=== PATIENT | female | born 1990 | race Caucasian/White ===

== ENCOUNTER 2021-06-10 18:32 | Inpatient (IN) | payer OTHER ==
[2021-06-10] MEDS ORDERED: Ondansetron 4 MG/2 ML SDV IVPUSH PRN (18:58)
[2021-06-10] MEDS ORDERED: Sodium Chloride 0.9% 10 ML Syringe FLUSH PRN (18:58)
[2021-06-10] MEDS ORDERED: Calcium Carbonate 500 MG Tab.Chew PO PRN (18:58)
[2021-06-10] MEDS ORDERED: Lidocaine 1% 50 ML MDV INJECT ONE (18:58)
[2021-06-10] MEDS ORDERED: Acetaminophen 325 MG Tab PO PRN (18:58)
[2021-06-10] MEDS ORDERED: Nalbuphine 10 MG/1 ML Vial IVPUSH PRN (18:58)
[2021-06-10] MEDS ORDERED: Oxytocin/Lactated Ringers 10 UNIT/1,000 ML BAG IV SCH ×2 (19:00)
[2021-06-10] MEDS: Lactated Ringers 1,000 ML IV SCH ×3 (20:44→22:28)
[2021-06-10] MEDS ORDERED: Bupivacaine/fentaNYL/NS 100 ML Bag EPIDUR PRN (21:07)
[2021-06-10] MEDS ORDERED: fentaNYL 100 MCG/2 ML SDV EPIDUR PRN (21:07)
[2021-06-10] MEDS ORDERED: diphenhydrAMINE 50 MG/ML SDV IVPUSH PRN (21:07)
[2021-06-10] MEDS ORDERED: ePHEDrine 50 MG/ML SDV IVPUSH PRN (21:07)
--- NOTE | 2021-06-10 21:17 | PCM.PREANE ---
Preanesthetic Assessment - Procedure Proposed Procedure: Labor epidural - Anesthesia/Transfusion/Family Hx Anesthesia History: Prior Anesthesia Reaction Type of Anesthesia Reaction: Excessive Nausea/Vomiting Family History of Anesthesia Reaction: No Transfusion History: No Prior Transfusion(s) Intubation History: Unknown - Review of Systems General: No Symptoms Pulmonary: No Symptoms Cardiovascular: No Symptoms Gastrointestinal: Abdominal Pain (uterine contractions) Neurological: No Symptoms Other: Reports: None - Physical Assessment NPO Status Date: 06/10/21 NPO Status Time: 17:00 Vital Signs: Last Vital Signs Temp 98.7 F 06/10/21 18:51 Pulse 106 H 06/10/21 18:51 Resp 16 06/10/21 18:51 BP 133/82 06/10/21 18:51 Pulse Ox 98 06/10/21 18:51 Height: 1.63 m Weight: 89.358 kg ASA Class: 2 Mental Status: Alert & Oriented x3 Airway Class: Mallampati = 2 Dentition: Reports: Caries Thyro-Mental Finger Breadths: 3 Mouth Opening Finger Breadths: 3 ROM/Head Extension: Full Lungs: Clear to Auscultation, Normal Respiratory Effort Cardiovascular: Regular Rate, Regular Rhythm, No Murmurs - Lab Values: Laboratory Last Values WBC 9.38 K/mm3 (3.98-10.04) 06/10/21 19:15 RBC 4.18 M/mm3 (3.98-5.22) 06/10/21 19:15 Hgb 11.8 gm/dl (11.2-15.7) 06/10/21 19:15 Hct 36.7 % (34.1-44.9) 06/10/21 19:15 MCV 87.8 fl (79.4-94.8) 06/10/21 19:15 MCH 28.2 pg (25.6-32.2) 06/10/21 19:15 MCHC 32.2 g/dl (32.2-35.5) 06/10/21 19:15 RDW Std Deviation 43.7 fL (36.4-46.3) 06/10/21 19:15 Plt Count 232 K/mm3 (182-369) 06/10/21 19:15 MPV 9.7 fl (9.4-12.3) 06/10/21 19:15 Neut % (Auto) 58.8 % (34.0-71.1) 06/10/21 19:15 Lymph % (Auto) 25.2 % (19.3-51.7) 06/10/21 19:15 [place] % (Auto) 14.2 % (4.7-12.5) H 06/10/21 19:15 Eos % (Auto) 1.1 (0.7-5.8) 06/10/21 19:15 Baso % (Auto) 0.1 % (0.1-1.2) 06/10/21 19:15 Neut # (Auto) 5.52 K/mm3 (1.56-6.13) 06/10/21 19:15 Lymph # (Auto) 2.36 K/mm3 (1.18-3.74) 06/10/21 19:15 [place] # (Auto) 1.33 K/mm3 (0.24-0.36) H 06/10/21 19:15 Eos # (Auto) 0.10 K/mm3 (0.04-0.36) 06/10/21 19:15 Baso # (Auto) 0.01 K/mm3 (0.01-0.08) 06/10/21 19:15 SARS-CoV-2 RNA (HARIKA) Negative (NEGATIVE) 06/10/21 18:58 - Allergies Allergies/Adverse Reactions: Allergies Allergy/AdvReac Type Severity Reaction Status Date / Time No Known Allergies Allergy Verified 05/30/16 11:14 - Blood Blood Available: No Product(s) Available: None - Acknowledgements Anesthesia Type Planned: Epidural Pt an Appropriate Candidate for the Planned Anesthesia: Yes Alternatives and Risks of Anesthesia Discussed w Pt/Guardian: Yes Pt/Guardian Understands and Agrees with Anesthesia Plan: Yes PreAnesthesia Questionnaire HEENT History: Reports: Impaired Vision Other HEENT History: Wears glasses Cardiovascular History: Reports: None Respiratory History: Reports: None Gastrointestinal History: Reports: GERD Genitourinary History: Reports: None 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: Musculoskeletal History: Reports: Arthritis Other Musculoskeletal History: undiagnosed per patient Neurological History: Reports: Cerebral Palsy Psychiatric History: Reports: None Endocrine/Metabolic History: Reports: None Hematologic History: Reports: None Immunologic History: Reports: None Oncologic (Cancer) History: Reports: None Dermatologic History: Reports: None - Infectious Disease History Infectious Disease History: Reports: None - Past Surgical History Female Surgical History: Reports: D&C Musculoskeletal Surgical History: Reports: Other (See Below) Other Musculoskeletal Surgeries/Procedures:: Ankle surgery; hip surgery - SUBSTANCE USE Tobacco Use Status *Q: Never Tobacco User Tobacco Use Within Last Twelve Months: No Second Hand Smoke Exposure: No Days Per Week of Alcohol Use: 0 Number of Drinks Per Day: 0 Total Drinks Per Week: 0 Recreational Drug Use History: No - HOME MEDS Home Medications: Home Meds Ibuprofen [Motrin] 600 mg PO Q4H PRN #30 tablet 05/30/16 [Rx] - CURRENT (IN HOUSE) MEDS Current Meds: Current Medications Acetaminophen (Acetaminophen 325 Mg Tab) 650 mg PO Q4H PRN PRN Reason: Pain (Mild 1-3) and fever Calcium Carbonate/Glycine (Calcium Carbonate 500 Mg Tab.Chew) 1,000 mg PO Q2H PRN PRN Reason: Indigestion Diphenhydramine HCl (Diphenhydramine 50 Mg/Ml Sdv) 25 mg IVPUSH Q6H PRN PRN Reason: pruritis Ephedrine Sulfate (Ephedrine 50 Mg/Ml Sdv) 5 mg IVPUSH ASDIRECTED PRN PRN Reason: Hypotension Fentanyl (Fentanyl 100 Mcg/2 Ml Sdv) 100 mcg EPIDUR Q3H PRN PRN Reason: Pain Fentanyl/Bupivacaine HCl (Bupivacaine/Fentanyl/Ns 100 Ml Bag) 100 ml EPIDUR ASDIRECTED PRN PRN Reason: Pain Lactated Ringer's (Ringers, Lactated) 1,000 mls @ 100 mls/hr IV ASDIRECTED JOANN Last Admin: 06/10/21 20:44 Dose: 100 mls/hr Documented by: Oxytocin/Lactated Ringer's (Pitocin In Lr 10 Units/1,000 Ml) 10 unit in 1,000 mls @ 12 mls/hr IV TITRATE JOANN; Protocol Oxytocin/Lactated Ringer's (Pitocin In Lr 10 Units/1,000 Ml) 10 unit in 1,000 mls @ 100 mls/hr IV .CONTINUOUS JOANN; Protocol Nalbuphine HCl (Nalbuphine 10 Mg/1 Ml Vial) 10 mg IVPUSH Q2H PRN PRN Reason: Pain Ondansetron HCl (Ondansetron 4 Mg/2 Ml Sdv) 4 mg IVPUSH Q4H PRN PRN Reason: Nausea/Vomiting Sodium Chloride (Sodium Chloride 0.9% 10 Ml Syringe) 10 ml FLUSH ASDIRECTED PRN PRN Reason: Keep Vein Open Discontinued Medications Lidocaine HCl (Lidocaine 1% 50 Ml Mdv) 50 ml INJECT ONETIME ONE Stop: 06/10/21 18:59
[2021-06-11] MEDS: Lactated Ringers 1,000 ML IV SCH (00:57)
--- NOTE | 2021-06-11 02:05 | PCM.LDHP ---
L&D History of Present Illness - General Date of Service: 06/11/21 Admit Problem/Dx: Patient Status Order with Admit Dx/Problem 06/10/21 18:38 Patient Status [ADT] Routine 06/10/21 18:58 Patient Status [ADT] Routine Admission Diagnosis/Problem Admission Diagnosis/Problem Source of Information: Patient - History of Present Illness Introduction:: 31 year old at 38w2 here with SROM. Clear fluid started leaking at 1430. PNC with Dr Estevez complicated by 1)Cerebral Palsy - pelvis proven to 5#12oz 2)Rh neg s/p 28 week prhogam 3)MMR equiv Pain Score: 2 - Related Data Allergies/Adverse Reactions: Allergies Allergy/AdvReac Type Severity Reaction Status Date / Time latex Allergy Itching Verified 06/10/21 23:02 Home Medications: Home Meds Ibuprofen [Motrin] 600 mg PO Q4H PRN #30 tablet 05/30/16 [Rx] Past Medical History - Past Health History Medical/Surgical History: Denies Medical/Surgical History HEENT History: Reports: Impaired Vision Other HEENT History: Wears glasses Cardiovascular History: Reports: None Other Cardiovascular History: records show factor V leiden mutation, pt denies this diagnosis Respiratory History: Reports: None Gastrointestinal History: Reports: GERD Genitourinary History: Reports: None 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: Musculoskeletal History: Reports: Arthritis Other Musculoskeletal History: undiagnosed per patient Neurological History: Reports: Cerebral Palsy Psychiatric History: Reports: None Endocrine/Metabolic History: Reports: None Hematologic History: Reports: None Immunologic History: Reports: None Oncologic (Cancer) History: Reports: None Dermatologic History: Reports: None - Infectious Disease History Infectious Disease History: Reports: None - Past Surgical History Female Surgical History: Reports: D&C Musculoskeletal Surgical History: Reports: Other (See Below) Other Musculoskeletal Surgeries/Procedures:: Ankle surgery; hip surgery Social & Family History - Family History Family Medical History: No Pertinent Family History Endocrine/Metabolic: Reports: Diabetes, type II Oncologic: Reports: Breast, Pancreatic, Uterine - Tobacco Use Tobacco Use Status *Q: Never Tobacco User Second Hand Smoke Exposure: No - Alcohol Use Days Per Week of Alcohol Use: 0 Number of Drinks Per Day: 0 Total Drinks Per Week: 0 - Recreational Drug Use Recreational Drug Use: No - Living Situation & Occupation Living situation: Reports: , with Spouse, with Family Occupation: Employed H&P Review of Systems - Review of Systems: Review Of Systems: See Below General: Reports: No Symptoms HEENT: Reports: No Symptoms Pulmonary: Reports: No Symptoms Cardiovascular: Reports: No Symptoms Gastrointestinal: Reports: No Symptoms Genitourinary: Reports: No Symptoms Musculoskeletal: Reports: No Symptoms Skin: Reports: No Symptoms Psychiatric: Reports: No Symptoms Neurological: Reports: No Symptoms Hematologic/Lymphatic: Reports: No Symptoms Immunologic: Reports: No Symptoms L&D Exam - Exam Exam: See Below - Vital Signs Vital Signs: Last Vital Signs Temp 37.1 C 06/10/21 18:51 Pulse 106 H 06/10/21 18:51 Resp 16 06/10/21 18:51 BP 133/82 06/10/21 18:51 Pulse Ox 98 06/10/21 18:51 Weight: 89.358 kg - OB Specific Contraction Intensity: Moderate to Strong Movement: Active Heart Tones: Present Heart Rate (FHR) Variability: Moderate (6-25 bpm) Presentation: Vertex - Marquez Score Marquez Score Cervix Position: Anterior Marquez Score Effacement: 31-50% Marquez Score Dilation: 3-4 cm Marquez Score Infant's Station: -2 - Exam General: Alert, Oriented HEENT: PERRLA, Conjunctiva Clear, EACs Clear, EOMI, Hearing Intact, Mucosa Moist & [place], Nares Patent, Normal Nasal Septum, Posterior Pharynx Clear, TMs Clear Neck: Supple, Trachea Midline Lungs: Clear to Auscultation, Normal Respiratory Effort Cardiovascular: Regular Rate, Regular Rhythm GI/Abdominal Exam: Normal Bowel Sounds, Soft, Non-Tender, No Organomegaly, No Distention, No Abnormal Bruit, No Mass, Pelvis Stable Back Exam: Normal Inspection, Full Range of Motion Extremities: Normal Inspection, Normal Range of Motion, Non-Tender, No Pedal Edema, Normal Capillary Refill Skin: Warm, Dry, Intact Neurological: Cranial Nerves Intact, Reflexes Equal Bilateral Psychiatric: Alert, Normal Affect, Normal Mood - Patient Data Lab Results Last 24 hrs: Laboratory Results - last 24 hr 06/10/21 06/10/21 06/10/21 Range/Units 18:58 19:15 19:15 WBC 9.38 (3.98-10.04) K/mm3 RBC 4.18 (3.98-5.22) M/mm3 Hgb 11.8 (11.2-15.7) gm/dl Hct 36.7 (34.1-44.9) % MCV 87.8 (79.4-94.8) fl MCH 28.2 (25.6-32.2) pg MCHC 32.2 (32.2-35.5) g/dl RDW Std Deviation 43.7 (36.4-46.3) fL Plt Count 232 (182-369) K/mm3 MPV 9.7 (9.4-12.3) fl Neut % (Auto) 58.8 (34.0-71.1) % Lymph % (Auto) 25.2 (19.3-51.7) % [place] % (Auto) 14.2 H (4.7-12.5) % Eos % (Auto) 1.1 (0.7-5.8) Baso % (Auto) 0.1 (0.1-1.2) % Neut # (Auto) 5.52 (1.56-6.13) K/mm3 Lymph # (Auto) 2.36 (1.18-3.74) K/mm3 [place] # (Auto) 1.33 H (0.24-0.36) K/mm3 Eos # (Auto) 0.10 (0.04-0.36) K/mm3 Baso # (Auto) 0.01 (0.01-0.08) K/mm3 RPR Non-reactive (NONREACTIVE) SARS-CoV-2 RNA (HARIKA) Negative (NEGATIVE) Result Diagrams: 06/10/21 19:15 Problem List Initiated/Reviewed/Updated: Yes Orders Last 24hrs: Active Orders 24 hr Category Date Time Status Patient Status [ADT] Routine ADT 06/10/21 18:58 Active Activity as Tolerated [RC] PFP Care 06/10/21 18:58 Active Communication Order [RC] ASDIRECTED Care 06/10/21 18:58 Active Heart Tones [RC] ASDIRECTED Care 06/10/21 18:59 Active Non Stress Test [RC] PER UNIT ROUTINE Care 06/10/21 18:38 Active Notify Provider [RC] ASDIRECTED Care 06/10/21 21:07 Active Notify Provider [RC] PFP Care 06/10/21 18:58 Active Notify Provider [RC] PRN Care 06/10/21 18:58 Active Peripheral IV Care [RC] . DIRECTED Care 06/10/21 18:59 Active Pump Management, Intrathecal [RC] ASDIRECTED Care 06/10/21 18:59 Active Urinary Catheter Assessment [RC] ASDIRECTED Care 06/10/21 18:58 Active Vaginal Exam [RC] PRN Care 06/10/21 18:39 Active Vital Signs [RC] PER UNIT ROUTINE Care 06/10/21 18:38 Active Vital Signs [RC] PER UNIT ROUTINE Care 06/10/21 18:58 Active Regular Diet [DIET] Diet 06/10/21 Breakfast Active AMNISURE RUPTURE MEMBRAN [BF] Stat Lab 06/10/21 18:38 Ordered HEP C VIRUS AB [REF] Routine Lab 06/10/21 19:15 Received Acetaminophen [TylenoL] Med 06/10/21 18:58 Active 650 mg PO Q4H PRN Bupivacaine/fentaNYL/NS [fentaNYL/Bupivacaine/NS 2 MCG- Med 06/10/21 21:07 Active 0.125% 100 ML] 100 ml EPIDUR ASDIRECTED PRN Calcium Carbonate [Tums] Med 06/10/21 18:58 Active 1,000 mg PO Q2H PRN Lactated Ringers [Ringers, Lactated] 1,000 ml Med 06/10/21 19:00 Active IV ASDIRECTED Nalbuphine [Nubain] Med 06/10/21 18:58 Active 10 mg IVPUSH Q2H PRN Ondansetron [Zofran] Med 06/10/21 18:58 Active 4 mg IVPUSH Q4H PRN Oxytocin/Lactated Ringers [Pitocin in LR 10 Units/1,000 Med 06/10/21 19:00 Active ML] 10 unit in 1,000 ml IV .CONTINUOUS Oxytocin/Lactated Ringers [Pitocin in LR 10 Units/1,000 Med 06/10/21 19:00 Active ML] 10 unit in 1,000 ml IV TITRATE Sodium Chloride 0.9% [Saline Flush] Med 06/10/21 18:58 Active 10 ml FLUSH ASDIRECTED PRN diphenhydrAMINE [Benadryl] Med 06/10/21 21:07 Active 25 mg IVPUSH Q6H PRN ePHEDrine [ePHEDrine sulfate] Med 06/10/21 21:07 Active 5 mg IVPUSH ASDIRECTED PRN fentaNYL [Sublimaze] Med 06/10/21 21:07 Active 100 mcg EPIDUR Q3H PRN Electronic Heart Tones Ext w TOCO [WOMSER] Oth 06/10/21 18:58 Ordered Routine Electronic Heart Tones Internal [WOMSER] Per Unit Oth 06/10/21 18:58 Ordered Routine Peripheral IV Insertion Adult [OM.PC] Routine Oth 06/10/21 18:58 Ordered Resuscitation Status Routine Resus Stat 06/10/21 18:38 Ordered Medication Orders Acetaminophen (Acetaminophen 325 Mg Tab) 650 mg PO Q4H PRN PRN Reason: Pain (Mild 1-3) and fever Calcium Carbonate/Glycine (Calcium Carbonate 500 Mg Tab.Chew) 1,000 mg PO Q2H PRN PRN Reason: Indigestion Diphenhydramine HCl (Diphenhydramine 50 Mg/Ml Sdv) 25 mg IVPUSH Q6H PRN PRN Reason: pruritis Ephedrine Sulfate (Ephedrine 50 Mg/Ml Sdv) 5 mg IVPUSH ASDIRECTED PRN PRN Reason: Hypotension Fentanyl (Fentanyl 100 Mcg/2 Ml Sdv) 100 mcg EPIDUR Q3H PRN PRN Reason: Pain Last Admin: 06/10/21 21:31 Dose: 100 mcg Documented by: EVIE Fentanyl/Bupivacaine HCl (Bupivacaine/Fentanyl/Ns 100 Ml Bag) 100 ml EPIDUR ASDIRECTED PRN PRN Reason: Pain Last Admin: 06/10/21 21:32 Dose: 100 ml Documented by: EVIE Lactated Ringer's (Ringers, Lactated) 1,000 mls @ 100 mls/hr IV ASDIRECTED JOANN Last Admin: 06/11/21 00:57 Dose: 100 mls/hr Documented by: Infusion: 06/11/21 00:57 Dose: 100 mls/hr Documented by: Admin: 06/10/21 22:28 Dose: 100 mls/hr Documented by: Infusion: 06/10/21 22:28 Dose: 100 mls/hr Documented by: Admin: 06/10/21 21:33 Dose: 100 mls/hr Documented by: Infusion: 06/10/21 21:33 Dose: 100 mls/hr Documented by: Admin: 06/10/21 20:44 Dose: 100 mls/hr Documented by: EVIE Oxytocin/Lactated Ringer's (Pitocin In Lr 10 Units/1,000 Ml) 10 unit in 1,000 mls @ 12 mls/hr IV TITRATE JOANN; Protocol Last Titration: 06/11/21 01:06 Dose: 0 munits/min, 0 mls/hr Documented by: Titration: 06/11/21 00:59 Dose: 2 munits/min, 12 mls/hr Documented by: Titration: 06/11/21 00:15 Dose: 5 munits/min, 30 mls/hr Documented by: Titration: 06/10/21 23:15 Dose: 4 munits/min, 24 mls/hr Documented by: Admin: 06/10/21 22:29 Dose: 2 munits/min, 12 mls/hr Documented by: EVIE Oxytocin/Lactated Ringer's (Pitocin In Lr 10 Units/1,000 Ml) 10 unit in 1,000 mls @ 100 mls/hr IV .CONTINUOUS JOANN; Protocol Nalbuphine HCl (Nalbuphine 10 Mg/1 Ml Vial) 10 mg IVPUSH Q2H PRN PRN Reason: Pain Ondansetron HCl (Ondansetron 4 Mg/2 Ml Sdv) 4 mg IVPUSH Q4H PRN PRN Reason: Nausea/Vomiting Sodium Chloride (Sodium Chloride 0.9% 10 Ml Syringe) 10 ml FLUSH ASDIRECTED PRN PRN Reason: Keep Vein Open Assessment/Plan Comment:: Term SROM - minimal contractions. 1) admission labs including COVID test, CBC, type and screen and RPR 2)pitocin augmentation 3)routine care, anticipate
--- NOTE | 2021-06-11 02:08 | PCM.SN.2 ---
- Free Text/Narrative Note: Stage 1 - Patient presented with SROM. Pitocin augmentation. Epidural anesthesia. Progressed to complete with overall reassuring heart tones. Stage II - of viable male, weight 3060g, 8/9 apgars at 0138. Head delivered in controlled manner over intact perineum. Body and shoulders atraumatically. To maternal abdomen. Positive cry. Cord clamped and cut by father of baby. Cord blood collected. 3vc. Stage III - Cord and lower portion of placenta delivered not intact. Manual extraction of remainder of placenta. Exploration of uterus revealed clot and no further placenta. EBL 300.
[2021-06-11] MEDS ORDERED: Misoprostol 200 MCG Tab ONE (02:13)
[2021-06-11] MEDS ORDERED: Misoprostol 200 MCG Tab PO ONE (02:21)
[2021-06-11] MEDS ORDERED: Acetaminophen 325 MG Tab PO PRN (02:21)
[2021-06-11] MEDS ORDERED: ceFAZolin 1 GM in Premix Bag 1 BAG IV ONE (02:21)
[2021-06-11] MEDS ORDERED: Witch Hazel Medicated Pads 40/Jar TOP PRN (02:21)
[2021-06-11] MEDS ORDERED: Benzocaine/Menthol 20%-0.5% Spray 56 GM Canister TOP PRN (02:21)
[2021-06-11] MEDS ORDERED: Bupivacaine 0.25% 10 ML SDV ONE (03:00)
[2021-06-11] MEDS: Ibuprofen 600 MG Tab PO PRN ×2 (04:45→16:58)
--- NOTE | 2021-06-11 07:38 | PCM48HPAN ---
Post Anesthesia Note - EVALUATION WITHIN 48HRS OF ANESTHETIC Vital Signs in Normal Range: Yes Patient Participated in Evaluation: Yes Respiratory Function Stable: Yes Airway Patent: Yes Cardiovascular Function Stable: Yes Hydration Status Stable: Yes Pain Control Satisfactory: Yes Nausea and Vomiting Control Satisfactory: Yes Mental Status Recovered: Yes Vital Signs: Last Vital Signs Temp 37.1 C 06/10/21 18:51 Pulse 106 H 06/10/21 18:51 Resp 16 06/10/21 18:51 BP 133/82 06/10/21 18:51 Pulse Ox 98 06/10/21 18:51 - COMMENTS/OBSERVATIONS Free Text/Narrative:: no anesthesia complications noted
--- NOTE | 2021-06-12 05:48 | PCM.DCSUM1 ---
Discharge Summary - Hospital Course Free Text/Narrative:: Stage 1 -Ira is a 31-year-old 3 now para 3-0-0-3 white female who was admitted on 06/10/2021 at 38-2/7 weeks gestational age with SROM. Amniotic fluid was clear. Patient underwent Pitocin augmentation. Epidural anesthesia. Progressed to complete with overall reassuring heart tones. Stage II - of viable male, weight 3060g, 8/9 apgars at 0138. Head delivered in controlled manner over intact perineum. Body and shoulders atraumatically. To maternal abdomen. Positive cry. Cord clamped and cut by father of baby. Cord blood collected. 3vc. Stage III - Cord and lower portion of placenta delivered not intact. Manual extraction of remainder of placenta. Exploration of uterus revealed clot and no further placenta. EBL 300. she is nursing well, has minimal lochia, is ambulating well and is voiding without concerns. Vital signs have been stable. She is afebrile. She is desiring discharge home. Condition: Good Diagnosis: Stroke: No - Discharge Data Discharge Date: 06/12/21 Discharge Disposition: Home, Self-Care 01 Condition: Good - Referral to Home Health Primary Care Physician: Jerrod Estevez MD - Patient Instructions Diet: Usual Diet as Tolerated, Regular Diet as Tolerated (Nursing diet with increased calories and calcium as recommended) - Discharge Plan Home Medications: Home Meds Ibuprofen [Motrin] 600 mg PO Q4H PRN #30 tablet 05/30/16 [Rx] Acetaminophen [Tylenol] 650 mg PO Q4H PRN tablet 06/12/21 [Rx] Referrals: Jerrod Estevez MD [Primary Care Provider] - (Return to [facility] weeks.) - Discharge Summary/Plan Comment DC Time >30 min.: No Total # of Minutes for Discharge Time: 10 Discharge Summary/Plan Comment: Discharge instructions: 1. Discharge home 2. Diet, activity and follow-up discussed with patient. Recommend nursing diet with increased calories and calcium. 3. Precautions given concern increased pain, bleeding, temperature, signs/symptoms of DVT/PE. 4. Medications per home medication was printed, discussed with and given to the patient. 5. Return to clinic-Dr. Estevez[facility] in 2 weeks. Diagnosis: Term -delivered Condition: Good - Patient Data Vitals - Most Recent: Last Vital Signs Temp 36.4 C 06/12/21 04:42 Pulse 67 06/12/21 04:42 Resp 16 06/12/21 04:42 BP 108/69 06/12/21 04:42 Pulse Ox 99 06/12/21 04:42 Weight - Most Recent: 89.358 kg I&O - Last 24 hours: Intake & Output 06/11/21 06/11/21 06/12/21 14:59 22:59 06:59 Intake Total 5027 30 Output Total 1024 Balance 4003 30 Lab Results - Last 24 hrs: Laboratory Results - last 24 hr 06/11/21 06/11/21 Range/Units 06:21 13:58 WBC 10.01 (3.98-10.04) K/mm3 RBC 3.55 L (3.98-5.22) M/mm3 Hgb 10.0 L D (11.2-15.7) gm/dl Hct 31.3 L (34.1-44.9) % MCV 88.2 (79.4-94.8) fl MCH 28.2 (25.6-32.2) pg MCHC 31.9 L (32.2-35.5) g/dl RDW Std Deviation 43.1 (36.4-46.3) fL Plt Count 201 (182-369) K/mm3 MPV 9.6 (9.4-12.3) fl Neut % (Auto) 67.5 (34.0-71.1) % Lymph % (Auto) 20.5 (19.3-51.7) % [place] % (Auto) 10.8 (4.7-12.5) % Eos % (Auto) 0.6 L (0.7-5.8) Baso % (Auto) 0.1 (0.1-1.2) % Neut # (Auto) 6.76 H (1.56-6.13) K/mm3 Lymph # (Auto) 2.05 (1.18-3.74) K/mm3 [place] # (Auto) 1.08 H (0.24-0.36) K/mm3 Eos # (Auto) 0.06 (0.04-0.36) K/mm3 Baso # (Auto) 0.01 (0.01-0.08) K/mm3 Blood Type O NEGATIVE Gel Antibody Screen Positive Screen 1 ros/5 flds - neg RhIG Candidate? Yes Rhogam Indicated Yes, baby rh pos H Med Orders - Current: Current Medications Acetaminophen (Acetaminophen 325 Mg Tab) 650 mg PO Q4H PRN PRN Reason: mild pain or fever Benzocaine/Menthol (Benzocaine/Menthol 20%-0.5% Mcdavid 56 Gm Canister) 0 gm TOP ASDIRECTED PRN PRN Reason: Perineal Comfort Measure Ibuprofen (Ibuprofen 600 Mg Tab) 600 mg PO Q6H PRN PRN Reason: Mild pain or fever Last Admin: 06/11/21 16:58 Dose: 600 mg Documented by: Ray Padilla (Ray Padilla Medicated Pads 40/Jar) 1 pad TOP ASDIRECTED PRN PRN Reason: Perineal Comfort Measure Last Admin: 06/11/21 04:46 Dose: 1 canister Documented by: Discontinued Medications Acetaminophen (Acetaminophen 325 Mg Tab) 650 mg PO Q4H PRN PRN Reason: Pain (Mild 1-3) and fever Bupivacaine HCl (Bupivacaine 0.25% 10 Ml Sdv) 10 ml .ROUTE .STK-MED ONE Stop: 06/11/21 03:01 Calcium Carbonate/Glycine (Calcium Carbonate 500 Mg Tab.Chew) 1,000 mg PO Q2H PRN PRN Reason: Indigestion Diphenhydramine HCl (Diphenhydramine 50 Mg/Ml Sdv) 25 mg IVPUSH Q6H PRN PRN Reason: pruritis Ephedrine Sulfate (Ephedrine 50 Mg/Ml Sdv) 5 mg IVPUSH ASDIRECTED PRN PRN Reason: Hypotension Fentanyl (Fentanyl 100 Mcg/2 Ml Sdv) 100 mcg EPIDUR Q3H PRN PRN Reason: Pain Last Admin: 06/10/21 21:31 Dose: 100 mcg Documented by: Fentanyl/Bupivacaine HCl (Bupivacaine/Fentanyl/Ns 100 Ml Bag) 100 ml EPIDUR ASDIRECTED PRN PRN Reason: Pain Last Admin: 06/10/21 21:32 Dose: 100 ml Documented by: Lactated Ringer's (Ringers, Lactated) 1,000 mls @ 100 mls/hr IV ASDIRECTED JOANN Last Admin: 06/11/21 00:57 Dose: 100 mls/hr Documented by: Oxytocin/Lactated Ringer's (Pitocin In Lr 10 Units/1,000 Ml) 10 unit in 1,000 mls @ 12 mls/hr IV TITRATE JOANN; Protocol Last Titration: 06/11/21 01:06 Dose: 0 munits/min, 0 mls/hr Documented by: Oxytocin/Lactated Ringer's (Pitocin In Lr 10 Units/1,000 Ml) 10 unit in 1,000 mls @ 100 mls/hr IV .CONTINUOUS JOANN; Protocol Cefazolin Sodium/Dextrose 1 gm (/ Premix) 50 mls @ 100 mls/hr IV ONETIME ONE Stop: 06/11/21 02:50 Last Admin: 06/11/21 05:17 Dose: Not Given Documented by: Cefazolin Sodium/Dextrose (Ancef 2 Gm/50 Ml) 25 mls @ 50 mls/hr IV ONETIME ONE Stop: 06/11/21 04:14 Last Admin: 06/11/21 04:44 Dose: 50 mls/hr Documented by: Lidocaine HCl (Lidocaine 1% 50 Ml Mdv) 50 ml INJECT ONETIME ONE Stop: 06/10/21 18:59 Last Admin: 06/11/21 05:18 Dose: Not Given Documented by: Misoprostol (Misoprostol 200 Mcg Tab) Confirm Administered Dose 600 mcg .ROUTE .ST-MED ONE Stop: 06/11/21 02:14 Last Admin: 06/11/21 05:17 Dose: Not Given Documented by: Misoprostol (Misoprostol 200 Mcg Tab) 600 mcg PO ONETIME ONE Stop: 06/11/21 02:22 Last Admin: 06/11/21 02:15 Dose: 600 mcg Documented by: Nalbuphine HCl (Nalbuphine 10 Mg/1 Ml Vial) 10 mg IVPUSH Q2H PRN PRN Reason: Pain Ondansetron HCl (Ondansetron 4 Mg/2 Ml Sdv) 4 mg IVPUSH Q4H PRN PRN Reason: Nausea/Vomiting Sodium Chloride (Sodium Chloride 0.9% 10 Ml Syringe) 10 ml FLUSH ASDIRECTED PRN PRN Reason: Keep Vein Open
[2021-06-12 09:12] VITALS: BP 123/83; PULSE 83
== END 2021-06-12 09:06 | disposition home or self-care (01) | DRG 806 ==
LOC: JD.OBCHECK 18:32 → JD.OB 18:58 → OBSVTOIN 06-11 01:38 → JD.OB 06-11 01:39
PROVIDERS: ADMIT Obstetrics & Gynecology; ATTEND Obstetrics & Gynecology
PROC: 10E0XZZ Delivery of Products of Conception, External Approach (ICD-10-PCS; principal; 2021-06-11)
PROC: 3E0334Z Introduction of Serum, Toxoid and Vaccine into Peripheral Vein, Percutaneous Approach (ICD-10-PCS; principal; 2021-06-11)
PROC: 3E0R3BZ Introduction of Anesthetic Agent into Spinal Canal, Percutaneous Approach (ICD-10-PCS; principal; 2021-06-11)
DX: O26.893 Other specified pregnancy related conditions, third trimester (principal); O99.354 Diseases of the nervous system complicating childbirth; Z37.0 Single live birth; Z3A.38 38 weeks gestation of pregnancy; G80.9 Cerebral palsy, unspecified; Z20.822 Contact with and (suspected) exposure to COVID-19; Z67.41 Type O blood, Rh negative
CPT/HCPCS: 01967; 36415; 51702; 59025; 59200; 85025; 85461; 86592; 86803; 86850; 86870; 86900; 86901; A9270-GY; J0690; J2590; J2790; J3010; J3490; J7120; U0002